=== PATIENT | female | born 1975 | race Caucasian/White ===

== ENCOUNTER 2019-09-04 20:49 | Emergency (ER) | payer OTHER ==
[~2019-09-04] VITALS: Ht 160 cm; Wt 81.8 kg
[2019-09-04 21:11] VITALS: Ht 160 cm; Wt 81.8 kg
[2019-09-04] MEDS ORDERED: NORVASC10 MG (21:12)
[2019-09-04] MEDS ORDERED: TAMIFLU75 MG PO (21:12)
[2019-09-04] MEDS ORDERED: NEURONTIN 300300 MG (21:12)
[2019-09-04] MEDS ORDERED: TESSALON PERLE100 MG PO (21:59)
[2019-09-04] MEDS ORDERED: ALBUTEROL SULF8.5 GM INH (21:59)
[2019-09-04 22:18] VITALS: BP 135/82
== END 2019-09-04 22:20 | disposition home or self-care (01) ==
LOC: D.ER 20:49
DX: J11.1 Influenza due to unidentified influenza virus with other respiratory manifestations (principal); J40 Bronchitis, not specified as acute or chronic; I10 Essential (primary) hypertension

== ENCOUNTER 2019-12-06 17:45 | Emergency (ER) | payer OTHER ==
[~2019-12-06] VITALS: Ht 160 cm; Wt 86.2 kg
[~2019-12-06 17:45] MED LIST: ALBUTEROL SULF8.5 GM INH; NEURONTIN 300300 MG; NORVASC10 MG; TAMIFLU75 MG PO; TESSALON PERLE100 MG PO
[2019-12-06 17:56] VITALS: Ht 160 cm; Wt 86.2 kg
[2019-12-06] MEDS ORDERED: BACLOFEN20 M1 PO (19:42)
[2019-12-06] MEDS ORDERED: VOLTAREN75 MG PO (19:42)
[2019-12-06 20:53] VITALS: BP 132/89
== END 2019-12-06 20:53 | disposition home or self-care (01) ==
LOC: D.ER 17:45
DX: M54.2 Cervicalgia (principal); M79.10 Myalgia, unspecified site; I10 Essential (primary) hypertension; W01.0XXA Fall on same level from slipping, tripping and stumbling without subsequent striking against object, initial encounter; Y93.9 Activity, unspecified; Y92.9 Unspecified place or not applicable

== ENCOUNTER 2020-03-20 23:23 | Emergency (ER) | payer OTHER ==
[~2020-03-20] VITALS: Ht 160 cm; Wt 80.0 kg
[~2020-03-20 23:23] MED LIST changes: +BACLOFEN20 M1 PO; +VOLTAREN75 MG PO
[2020-03-20 23:33] VITALS: Ht 160 cm; Wt 80.0 kg
[2020-03-20] MEDS ORDERED: KEFLEX500 MG PO (23:36)
[2020-03-21] MEDS ORDERED: STERAPRED DS 1010 MG PO (00:04)
[2020-03-21] MEDS ORDERED: TESSALON PERLE100 MG PO (00:05)
[2020-03-21 00:40] VITALS: BP 140/90
== END 2020-03-21 00:40 | disposition home or self-care (01) ==
LOC: D.ER 23:23
DX: J20.9 Acute bronchitis, unspecified (principal); Z72.0 Tobacco use; I10 Essential (primary) hypertension; R05 Cough; R68.89 Other general symptoms and signs